=== PATIENT | male | born 1990 | race Caucasian/White ===

== ENCOUNTER 2021-04-07 18:37 | Emergency (ER) | payer OTHER ==
[~2021-04-07 18:37] MED LIST: CYCLOBENZAPRINE10 MG PO; MEDROL 4MG DOSEP4 MG PO
[2021-04-07] MEDS ORDERED: ARTIFICIAL TEAR30 ML EYELF (21:02)
[2021-04-07] MEDS ORDERED: PREDNISONE 10MG10 MG PO (21:02)
== END 2021-04-07 21:38 | disposition home or self-care (01) ==
LOC: FER 18:37
DX: G51.0 Bell's palsy (principal)
CPT/HCPCS: 70450